=== PATIENT | male | born 1990 | race Caucasian/White ===

== ENCOUNTER 2024-06-09 17:45 | Emergency (ER) | payer OTHER, SELFPAY ==
[2024-06-09 17:50] VITALS: BP 130/90; PULSE 78; RESP 16; TEMP 36.8; O2SAT 100
--- NOTE | 2024-06-09 17:50 | ED.SKABFB ---
HPI - Skin/Abscess/Foreign Bdy General Chief complaint: Skin/Abscess/Foreign Body <Stefanie Blackman PA-C - Last Filed: 06/10/24 09:39> Stated complaint: spider bite <Stefanie Blackman PA-C - Last Filed: 06/10/24 09:39> Time Seen by Provider: 06/09/24 17:50 <Stefanie Blackman PA-C - Last Filed: 06/10/24 09:39> Focused HPI: This is a 34 year old male that presents to the ER for a wound to the left upper leg. Reports ongoing over the last couple of weeks. Reports worsening redness and swelling. He is a type 1 diabetic. He has not been seen for this complaint. Denies fevers or drainage. GENERAL: Well-appearing, well-nourished, and in no acute distress. HEAD: Normocephalic, atraumatic. CHEST: Clear to auscultation. ?No respiratory distress. HEART: Regular rate and rhythm.? SKIN: Left upper leg with moderate area of erythema with central necrosis NEURO: ?Alert and oriented x3. Patient screened in triage and initial orders placed.? ?Additional care and disposition to be based upon?diagnostic testing and treatment. <Stefanie Blackman PA-C - Last Filed: 06/10/24 09:39> History of Present Illness HPI narrative: 34-year-old male with a reported history of type 1 diabetes presents to the emergency department for a wound to his left lateral thigh for several weeks. Patient is concerned it may be a spider bite. He did not witness the spider bite him. He states he has not had insurance until recently which is why he has come to the ED. He denies fever, vomiting, drainage. <Zoraida Hayes PA-C - Last Filed: 06/10/24 01:10> Related Data Allergies/Adverse reactions: Allergies Allergy/AdvReac Type Severity Reaction Status Date / Time Sulfa (Sulfonamide Allergy Anaphylaxis Verified 06/09/24 17:53 Antibiotics) <Stefanie Blackman PA-C - Last Filed: 06/10/24 09:39> Review of Systems Review of Systems: All systems reviewed & are unremarkable except as noted in HPI and below <Zoraida Hayes PA-C - Last Filed: 06/10/24 01:10> [facility] Past Medical History Medical History: Medical History (Updated 06/10/24 @ 09:38 by Stefanie Blackman PA-C) History of diabetes mellitus <Stefanie Blackman PA-C - Last Filed: 06/10/24 09:39> Social History Social History: Social History (Updated 06/10/24 @ 09:38 by Stefanie Blackman PA-C) Substance use: never <Stefanie Blackman PA-C - Last Filed: 06/10/24 09:39> Exam Narrative: GENERAL: Well-appearing, well-nourished, and in no acute distress. HEAD: Normocephalic, atraumatic. ENT: Nares clear, no rhinorrhea or epistaxis. Mucous membranes moist. NECK: Supple. CHEST: Clear to auscultation. No respiratory distress. HEART: Regular rate and rhythm. No murmur heard. Normal peripheral pulses. EXTREMITIES: Normal range of motion. No edema. SKIN: Approximately 2 cc area of fluctuance with central 1 mm area of black tissue. There is surrounding blanching erythema, warmth and induration. No crepitus or spontaneous drainage NEURO: No focal deficits. Alert and oriented x3 <Zoraida Hayes PA-C - Last Filed: 06/10/24 01:10> Course Vital Signs Vital signs: Vital Signs Temperature 98.3 F 06/09/24 17:50 Pulse Rate 78 06/09/24 17:50 Respiratory Rate 16 06/09/24 17:50 Blood Pressure 130/90 06/09/24 17:50 Pulse Oximetry 100 06/09/24 17:50 Oxygen Delivery Room Air 06/09/24 17:50 Temperature 97.8 F 06/09/24 20:47 Pulse Rate 75 06/10/24 01:32 Respiratory Rate 15 06/10/24 01:32 Blood Pressure 120/84 06/10/24 01:32 Pulse Oximetry 100 06/10/24 01:32 Oxygen Delivery Room Air 06/09/24 17:50 <Stefanie Blackman PA-C - Last Filed: 06/10/24 09:39> Vital Signs Temperature 98.3 F 06/09/24 17:50 Pulse Rate 78 06/09/24 17:50 Respiratory Rate 16 06/09/24 17:50 Blood Pressure 130/90 06/09/24 17:50 Pulse Oximetry 100 06/09/24 17:50 Oxygen Delivery Room Air 06/09/24 17:50 Temperature
[2024-06-09 18:09] LABS: Basophils Absolute Auto 0.1 K/mm3 (0.0-0.1); Basophils Percent Auto 0.8 % (0.2-1.2); Eosinophils Absolute Auto 0.1 K/mm3 (0-0.3); Eosinophils Percent Auto 0.8 % (0-4.4); Hematocrit 44.8 % (42.0-52.0); Immature Granulocyte Absolute 0.02 K/mm3 (0.00-0.031); Immature Granulocyte Percent A 0.2 % (0-0.5); Lymphocytes Absolute Auto 3.74 K/mm3 (0.9-3.2); Lymphocytes Percent Auto 43.2 % (18.3-44.2); Mean Corpuscular HGB Conc 35.7 g/dl (32-36); Mean Corpuscular Hemoglobin 29.8 pg (26-34); Mean Corpuscular Volume 83.4 fl (80-100); Mean Platelet Volume 9.1 fl (7.4-10.4); Monocytes Absolute Auto 0.6 K/mm3 (0.1-0.6); Monocytes Percent Auto 7.3 % (2.6-8.5); Neutrophils Absolute Auto 4.1 K/mm3 (1.3-6.7); Neutrophils Percent Auto 47.7 % (45.5-73.1); Platelet Count Result 274 k/mm3 (150-375); Red Blood Count 5.37 M/mm3 (4.6-6.20); Red Cell Distribution Width 12.1 % (11.5-14.5); White Blood Count 8.7 K/mm3 (4.5-10.0)
[2024-06-09 18:21] LABS: Anion Gap 8 mmol/L (4-12); Blood Urea Nitrogen 21 mg/dL (9-20); CRP < 0.5 mg/dL (<1.0); Calcium 9.2 mg/dL (8.4-10.2); Carbon Dioxide 28 mmol/L (22-30); Chloride 100 mmol/L (98-107); Estimated CRCL calculation 92 ml/min; Estimated Glomerular Filt Rate > 60; Glucose 230 mg/dL (65-110); Potassium 4.5 mmol/L (3.4-5.0); Sodium 136 mmol/L (137-145)
[2024-06-09 18:59] LABS: Erythrocyte Sedimentation Rate 1 mm/hr (0-20)
[2024-06-09 20:47] VITALS: BP 121/72; PULSE 77; RESP 16; TEMP 36.6; O2SAT 100
[2024-06-09] MEDS: TETANUS,DIPHTHERIA,AC PERTUSSIS ADULT (0.5 ML) BOOSTRIX IM (23:01)
--- NOTE | 2024-06-09 23:03 | PC.NURSE ---
pt presents to ED stating he believes he was bit by a spider, but he is not sure. Pts states he noticed a sore on his left outer thigh a few weeks ago . Pt states since he noticed it a few weeks ago the sore has become larger, more painful and hard. The affected area is about a quarter size dark wound, the surrounding area is red.
[2024-06-09 23:25] VITALS: BP 134/87; PULSE 73; RESP 22; O2SAT 98
[2024-06-10] MEDS: CLINDAMYCIN HCL 150 MG CAP 300 MG PO (00:22)
[2024-06-10 01:32] VITALS: BP 120/84; PULSE 75; RESP 15; O2SAT 100
== END 2024-06-10 01:33 | disposition home or self-care (01) ==
PROVIDERS: Physician Assistant; Emergency Provider Physician Assistant
DX: L02.416 Cutaneous abscess of left lower limb (principal); Z23 Encounter for immunization; E10.9 Type 1 diabetes mellitus without complications
CPT/HCPCS: 10060; 36415; 80048; 85025; 85652; 86140; 90471; 90715; 99283; A9270